=== PATIENT | male | born 1970 | race Caucasian/White ===

== ENCOUNTER 2017-11-15 19:20 | Emergency (ER) | payer BC, OTHER ==
[~2017-11-15] VITALS: Ht 137.2 cm; Wt 62.4 kg
[2017-11-15 19:27] VITALS: BP 126/79
[2017-11-15] MEDS: KETOROLAC 30 MG/1 ML IM ONE ×2 (20:59→21:06)
[2017-11-15] MEDS: METHOCARBAMOL 750 MG TABLET PO ONE ×2 (21:00→21:06)
[2017-11-15] MEDS ORDERED: METHOCARBAMOL 750 MG TABLET ONE (21:02)
[2017-11-15] MEDS ORDERED: KETOROLAC 30 MG/1 ML ONE (21:02)
== END 2017-11-15 21:53 | disposition home or self-care (01) ==
LOC: ED 19:50
DX: S39.012A Strain of muscle, fascia and tendon of lower back, initial encounter (principal); X58.XXXA Exposure to other specified factors, initial encounter; Y93.89 Activity, other specified; Y92.89 Other specified places as the place of occurrence of the external cause; Y99.8 Other external cause status
CPT/HCPCS: 96372; 99283; J1885